=== PATIENT | female | born 1980 | race Caucasian/White ===

== ENCOUNTER 2017-09-13 15:33 | Emergency (ER) | payer OTHER ==
[2017-09-13] MEDS ORDERED: KETOROLAC 30 MG/ML 1 ML VIAL ONE (16:51)
[2017-09-13] MEDS ORDERED: HYDROmorphone 1 MG/ML 1 ML SYRINGE ONE (16:51)
[2017-09-13] MEDS ORDERED: ONDANSETRON 4 MG/2 ML VIAL ONE (16:51)
--- NOTE | 2017-09-14 10:47 | XR ---
EXAMINATION TYPE: XR Hip Complete RT DATE OF EXAM: 09/13/2017 CLINICAL HISTORY: pain TECHNIQUE: AP and frogleg views of the right hip are obtained. Single view of the pelvis is also sub mitted. COMPARISON: None. FINDINGS: There is no acute fracture/dislocation evident. Total right hip arthroplasty is in place. The overlying soft tissue appears unremarkable. IMPRESSION: 1. There is no acute fracture or dislocation. ICD 10 NO FRACTURE, INITIAL EVALUATION
== END 2017-09-13 17:37 | disposition home or self-care (01) ==
LOC: EC 15:33
DX: S70.01XA Contusion of right hip, initial encounter (principal); F17.200 Nicotine dependence, unspecified, uncomplicated; W00.0XXA Fall on same level due to ice and snow, initial encounter; Y92.410 Unspecified street and highway as the place of occurrence of the external cause
CPT/HCPCS: 72170; 73502; 96374; 96375; 99283